=== PATIENT | female | born 2000 | race Two or more races ===

== ENCOUNTER 2024-09-04 16:05 | Emergency (ER) | payer MEDICARE, MEDICAID, SELFPAY ==
[2024-09-04 16:21] VITALS: BP 107/71; PULSE 130; RESP 20; TEMP 38.5; O2SAT 96
--- NOTE | 2024-09-04 16:32 | XR_ITS ---
Examination: AP chest single view Technique one AP sitting portable chest single view Exam date and time: September 04, 2024 1646 hrs. Comparison September 19, 2022 Indications: Fever chest pain today. Findings: Early left perihilar pneumonia Reduced inspiratory. The film is underpenetrated Impression: Left perihilar pneumonia
--- NOTE | 2024-09-04 16:34 | PD.EDRME ---
Rapid Medical Screening Exam E Arrival date/time: 09/04/24 16:05 This is a 24-year-old female that is brought in by mother with complaints of fever and not acting normal. Patient has a history of epilepsy, cerebral palsy, developmental delay. Mom says fever started 3 days ago. And she has not been able to sleep at night for the past 2 days. Patient only makes noises and not able to communicate. Mother communicates in her own way with child. Mother reports that child's not feeling well. Per mother patient has been whining and crying more. I have greeted and performed a focused initial assessment of this patient. Initial appropriate labs ordered at this time. A comprehensive ED assessment and evaluation of the patient and analysis of all test and completion of medical decision making process will be conducted by additional ED provider. Chief Complaint: General Adult/Misc Complain Time Seen by Provider: 09/04/24 16:09 Vital signs: Vital Signs Temperature 101.3 F H 09/04/24 16:21 Pulse Rate 130 H 09/04/24 16:21 Respiratory Rate 20 09/04/24 16:21 Blood Pressure 107/71 09/04/24 16:21 Pulse Oximetry (%) 96 09/04/24 16:21 Oxygen Delivery Method Room Air 09/04/24 16:21
[2024-09-04 16:56] VITALS: TEMP 38.5
[2024-09-04] MEDS: ACETAMINOPHEN SOL 325 MG/10 ML UDC 650 MG PO (16:56)
[2024-09-04 17:12] LABS: Lactate (Lactic Acid) 1.8 mMol/L (0.4-2.0)
[2024-09-04 17:14] LABS: Basophils % (Auto) 0 % (0-2.5); Eosinophils % (Auto) 0 % (0-10); Hematocrit 44.4 % (36.0-46.0); Hemoglobin 14.9 g/dL (12.0-16.0); Immature Granulocytes % (Auto) 0 % (0-0); Immature Granulocytes Auto 0.04 Thou/mm3 (0.00-0.00); Lymphocytes # (Auto) 0.5 Thou/mm3 (1.0-4.8); Lymphocytes % (Auto) 5 % (10-50); Mean Corpuscular HGB Conc 33.6 g/dl (31.0-37.0); Mean Corpuscular Hemoglobin 27.3 pg (25.0-35.0); Mean Corpuscular Volume 82 fL (80-100); Monocytes # (Auto) 0.3 Thou/mm3 (0.0-0.8); Monocytes % (Auto) 3 % (0-12); Neutrophils # (Auto) 9.4 Thou/mm3 (1.8-7.7); Neutrophils % (Auto) 91 % (37-80); Nucleated Red Blood Cell % 0 /100 WBC (0); Platelet Count 175 Thou/mm3 (140-440); RDW Standard Deviation 37.2 fL (36.4-46.3); Red Blood Count 5.45 Miln/mm3 (4.00-5.20); White Blood Count 10.3 Thou/mm3 (3.6-11.0)
[2024-09-04 17:37] LABS: Alanine Aminotransferase 21 U/L (10-49); Albumin, Serum 4.7 gm/dL (3.5-5.0); Anion Gap 8 (7-16); Aspartate Amino Transferase 24 U/L (0-34); BUN/Creatinine Ratio 16 Ratio (12-20); Bilirubin,Total 0.4 mg/dL (0.3-1.2); Blood Urea Nitrogen 16 mg/dL (9-23); Calcium 9.7 mg/dL (8.3-10.6); Carbon Dioxide 25.7 mMol/L (20.0-31.0); Chloride 105 mMol/L (98-107); Glucose 144 mg/dL (74-106); Osmolality,Calculated 281 (275-295); Potassium 4.6 mMol/L (3.4-5.1); Sodium 139 mMol/L (136-145); Total Protein 7.8 gm/dL (5.7-8.2); eGFR > 60 See Note
[2024-09-04 17:38] LABS: Albumin/Globulin Ratio 1.5 (1.2-2.2); Alkaline Phosphatase 112 U/L (46-116); Calcium (Corrected) 9.7 mg/dL (8.5-10.1); Globulin 3.1 gm/dL (2.3-3.5)
[2024-09-04 17:42] LABS: Procalcitonin 0.22 ng/ml (0.0-0.49)
[2024-09-04 21:10] LABS: Collection Type, Urine Clean Catch
[2024-09-04 21:17] LABS: Bilirubin,Urine 1+ (Negative); Blood,Urine Negative (Negative); Clarity,Urine Turbid (Clear/Hazy); Color,Urine Drk-Yellow (Lt Yel-Yel); Glucose, Urine Trace (Negative); Ketones,Urine Trace (Negative); Leukocyte Esterase,Urine Positive (Negative); Nitrite,Urine Negative (Negative); Protein,Urine 2+ (Neg - Trace); RBC,Urine 7 /hpf (0-3); Squamous Epithelial Cell,Urine 6 /hpf (0-5); WBC,Urine 4 /hpf (0-5)
[2024-09-04 21:27] VITALS: PULSE 130; RESP 20; TEMP 37.1; O2SAT 96
--- NOTE | 2024-09-04 21:34 | EDNOTE_ITS ---
ED General RME/HPI General Chief complaint: General Adult/Misc Complain Stated complaint: PAIN Time Seen by Provider: 09/04/24 16:09 Arrival date/time: 09/04/24 16:05 CC: Fever and not acting normal and HPI ongoing for the past several days, the patient has epilepsy cerebral palsy is nonverbal with significant developmentally delayed. Mother states there is no other issues including diarrhea crying with urinating or constipation. RME / HPI RME / HPI narrative: 09/04/24 16:05 This is a 24-year-old female that is brought in by mother with complaints of fever and not acting normal. Patient has a history of epilepsy, cerebral palsy, developmental delay. Mom says fever started 3 days ago. And she has not been able to sleep at night for the past 2 days. Patient only makes noises and not able to communicate. Mother communicates in her own way with child. Mother reports that child's not feeling well. Per mother patient has been whining and crying more. I have greeted and performed a focused initial assessment of this patient. Initial appropriate labs ordered at this time. A comprehensive ED assessment and evaluation of the patient and analysis of all test and completion of medical decision making process will be conducted by additional ED provider. Related Data Home Medications ?Medication ?Instructions ?Recorded ?Confirmed oxcarbazepine 300 mg/5 mL (60 16 ml PO BID #2 tsp 12/12/2603/27/19 mg/mL) oral suspension (Trileptal) clobazam 2.5 mg/mL oral suspension 4 ml PO BID ##0 06/0103/27/19 (Onfi) Previous Rx's ?Medication ?Instructions ?Recorded docusate sodium 50 mg capsule 50 mg PO BID #20 caps (Colace Clear) guaifenesin 100 mg/5 mL oral liquid 200 mg (10 mL) PO Q4H PRN cough 07/23/21 #1,000 mL lactulose 10 gram/15 mL (15 mL) 20 g (30 mL) PO BID LA N 09/19/22 oral solution constipation #600 mL doxycycline hyclate 100 mg capsule 100 mg PO BID #14 c aps 09/04/24 Allergies Allergy/AdvReac Type Severity Reaction Status Date / Time Penicillins Allergy Intermediate RASH AND Verified 09/04/24 16:06 BLEEDING Review of Systems Review of Systems ROS Unobtainable: unobtainable due to mental status Past Medical History Past Medical History NEUROLOGIC: Positive Neurological Disorders, Seizures and Cerebral Palsy CARDIAC: Negative Congestive Heart Failure RESPIRATORY: Negative Chronic Obstructive Pulmonary Disease (COPD) GENITOURINARY: Negative Renal Disease ENDOCRINE: Negative Diabetes Mellitus Type 1 or Diabetes Mellitus Type 2 PSYCHO/SOCIAL: Positive Psychiatric Problems and Behavior Problems Family History FAMILY HISTORY: Positive Family Neurologic Problems Social History SMOKING STATUS: Never smoker SECOND HAND EXPOSURE: No SUBSTANCE USE: does not use ED Exam Narrative Physical exam: [General: Appears not in any acute distress Head normocephalic HEENT: Baseline disconjugate gaze pupils are PERRLA EOMs are intact. All other subsystems of HEENT are within acceptable limits Neck is supple nontender Chest equal chest rise nontender to palpation Respiratory: Clear to auscultation no wheezes crackles or rubs CV: Rate rhythm is regular no murmurs rubs or clicks Abdomen is distended secondary to body habitus soft nontender positive bowel sounds all 4 quadrants Back: No CVA tenderness no spinous process tenderness from cervical spine thoracic and lumbar spine Skin: Intact no petechiae rash induration ulceration or crepitus Extremities: Moving all extremity against resistance cap refill less than 2 seconds neurosensory intact Neuro: Awake, oriented to self. Course Quality Measures none Orders Category Date Time Status Bedside COVID-19 Antigen Test NOW Care 09/04/24 16:32 Completed Bedside Influenza A&B Antigen Test NOW Care 09/04/24 16:33 Completed Mcdaniel [Urinary Catheter] QS Care 09/04/24 16:36 Active XR chest 2V Stat Exams 09/04/24 16:32 Completed CBC Stat Lab 09/04/24 17:04 Completed Comprehensive Metabolic Panel Stat Lab 09/04/24 17:04 Completed Lactate (Lactic Acid) Stat Lab 09/04/24 17:04 Completed Procalcitonin Stat Lab 09/04/24 17:04 Completed UA [Urinalysis] Stat Lab 09/04/24 21:02 Completed Acetaminophen Violetta [Tylenol Violetta] Med 09/04/24 16:32 Discontinued 650 mg PO X1 ONE cefTRIAXone [Rocephin] 1,000 mg Med 09/04/24 21:40 Discontinued Lidocaine 1% 20 ml [Xylocaine 1% 20 ML] 2.1 ml IM X1 Vital Signs Vital signs: Vital Signs Temperature 101.3 F H 09/04/24 16:21 Pulse Rate 130 H 09/04/24 16:21 Respiratory Rate 20 09/04/24 16:21 Blood Pressure 107/71 09/04/24 16:21 Pulse Oximetry (%) 96 09/04/24 16:21 Oxygen Delivery Method Room Air 09/04/24 16:21 [facility] Patient data External records reviewed:: [facility] previous records Clinical information provided by:: patient and parent Social determinants that could affect healthcare access:: none Patient has the following chronic illnesses:: Cerebral palsy developmentally delayed How is presenting disease/condition affected by chronic disease/condition?: u neffected by Evaluation data The following diagnostics were reviewed and interpreted by me:: lab results and radiology exam(s) Lab and/or radiology exams considered but not ordered:: CBC shows no acute leukocytosis anemia thrombocytopenia CMP shows no acute electrolyte imbalances renal impairment transaminitis or T. bili elevation Urine is negative for UTI Chest x-ray shows a possible left pneumonia. Interpretation Summary: Pneumonia Medications Medications considered but not ordered:: None Medication administrations:: Medication Administration History Discontinued Medications Acetaminophen (Acetaminophen Violetta 325 Mg/10 Ml Udc) 650 mg PO X1 ONE Stop: 09/04/24 16:33 Last Admin: 09/04/24 16:56 Dose: 650 mg Documented By: KF Ceftriaxone Sodium 1,000 mg/ (Lidocaine HCl 2.1 ml) 0 mg IM X1 ONE Stop: 09/04/24 21:41 Last Admin: 09/04/24 21:47 Dose: 1,000 mg Documented By: CVL None Consultations Consultation(s) initiated? (list below): No Diagnosis Differential Diagnosis ED Complaint MDM: Pneumonia UTI sepsis Most likely diagnosis given after review of the tests above:: Pneumonia Admission Indicated Admission indicated?: not indicated Explain why admission is indicated or not indicated:: Stable for outpatient follow up Admission Request Was there a request for admission?: No Disposition Plan Disposition Plan: Discharge Discharge Attestation Discharge Attestation: The patient and all family members were given an opportunity to ask questions and understood the discharge instructions. Discharge instructions specifically effects, indications for sooner follow up or return to the emergency department, and the expected course of current diagnosis. Patient condition: Stable Medical Decision Making Differential Diagnosis Differential Diagnosis: Pneumonia UTI sepsis Lab Data 09/04/24 17:04 09/04/24 17:04 Labs: Lab Results 09/04/24 09/04/24 09/04/24 Range/Units 16:50 17:04 21:02 WBC 10.3 (3.6-11.0) Thou/mm3 RBC 5.45 H (4.00-5.20) Miln/mm3 Hgb 14.9 (12.0-16.0) g/dL Hct 44.4 (36.0-46.0) % MCV 82 (80-100) fL MCH 27.3 (25.0-35.0) pg MCHC 33.6 (31.0-37.0) g/dl RDW Std Deviation 37.2 (36.4-46.3) fL Plt Count 175 (140-440) Thou/mm3 Neut % (Auto) 91 H (37-80) % Lymph % (Auto) 5 L (10-50) % [place] % (Auto) 3 (0-12) % Eos % (Auto) 0 (0-10) % Baso % (Auto) 0 (0-2.5) % Neut # (Auto) 9.4 H (1.8-7.7) Thou/mm3 Lymph # (Auto) 0.5 L (1.0-4.8) Thou/mm3 [place] # (Auto) 0.3 (0.0-0.8) Thou/mm3 Eos # (Auto) 0.0 (0.0-0.5) Thou/mm3 Baso # (Auto) 0.0 (0.0-0.2) Thou/mm3 Immature Gran # (Auto) 0.04 H (0.00-0.00) Thou/mm3 Absolute Nucleated RBC 0.00 (0.00-0.00) Thou/mm3 Immature Gran % 0 (0-0) % Nucleated RBC % 0 (0) /100 WBC Sodium 139 (136-145) mMol/L Potassium 4.6 (3.4-5.1) mMol/L Chloride 105 (98-107) mMol/L Carbon Dioxide 25.7 (20.0-31.0) mMol/L Anion Gap 8 (7-16) BUN 16 (9-23) mg/dL Creatinine 1.0 (0.6-1.3) mg/dL Estim Creat Clear Calc Not Performed. eGFR > 60 (60 - ) See Note BUN/Creatinine Ratio 16 (12-20) Ratio Glucose 144 H (74-106) mg/dL Calculated Osmolality 281 (275-295) Lactic Acid 1.8 (0.4-2.0) mMol/L Calcium 9.7 (8.3-10.6) mg/dL Corrected Calcium 9.7 (8.5-10.1) mg/dL Total Bilirubin 0.4 (0.3-1.2) mg/dL AST 24 (0-34) U/L ALT 21 (10-49) U/L Alkaline Phosphatase 112 (46-116) U/L Total Protein 7.8 (5.7-8.2) gm/dL Albumin 4.7 (3.5-5.0) gm/dL Globulin 3.1 (2.3-3.5) gm/dL Albumin/Globulin Ratio 1.5 (1.2-2.2) Procalcitonin 0.22 (0.0-0.49) ng/ml Ur Collection Type Cancelled Clean Catch Urine Color Cancelled Drk-Yellow A Urine Clarity Cancelled Turbid A Urine pH Cancelled 6.0 Ur Specific [place] Cancelled 1.030 Urine Protein Cancelled 2+ A Urine Glucose (UA) Cancelled Trace Urine Ketones Cancelled Trace Urine Blood Cancelled Negative Urine Nitrite Cancelled Negative Urine Bilirubin Cancelled 1+ A Urine Urobilinogen (Auto) Cancelled 4.0 Ur Leukocyte Esterase Cancelled Positive Urine RBC Cancelled 7 H Urine WBC Cancelled 4 Ur Squamous Epith Cells Cancelled 6 H Ur Transition Epith Cell Cancelled Ur Renal Epithelial Cell Cancelled Calcium Carbonate Cryst Cancelled Calcium Phosphate Cryst Cancelled Calcium Oxalate Crystal Cancelled Leucine Crystals Cancelled Cystine Crystals Cancelled Uric Acid Crystals Cancelled Triple Phos Crystals Cancelled Tyrosine Crystals Cancelled Amorphous Crystals Cancelled Urine Bacteria Cancelled None Cellular Casts Cancelled Epithelial Casts Cancelled Fatty Casts Cancelled Hyaline Casts Cancelled Granular Casts Cancelled Waxy Casts Cancelled Broad Casts Cancelled RBC Casts Cancelled Urine Mucus Cancelled Urine Trichomonas Cancelled Ur Yeast w Hyphae Cancelled Urine Yeast (Budding) Cancelled Urine Sperm Cancelled Ur Oval Fat Bodies Cancelled Ur Culture Indicated? Cancelled Discharge Plan Plan Patient Disposition: HOME (Self Care) Patient condition on transfer: Stable Prescriptions/Referrals Prescriptions/Med Rec: New doxycycline hyclate 100 mg capsule 100 mg PO BID Qty: 14 0RF No Action oxcarbazepine [Trileptal] 300 MG/5 ML suspension 16 ml PO BID Qty: 2 clobazam [Onfi] 2.5 MG/1 ML suspension 4 ml PO BID Qty: 0 Colace Clear 50 MG capsule 50 mg PO BID Qty: 20 0RF guaifenesin 100 mg/5 mL liquid 200 mg PO Q4H PRN (Reason: cough) Qty: 1000 0RF lactulose 10 gram/15 mL (15 mL) solution 20 g PO BID PRN (Reason: constipation) Qty: 600 0RF Problem List Clinical Impression: Pneumonia Patient/Caregiver Discharge Instructions Education Materials: ED Pneumonia (Adult) Print Language: Trinidadian Stand Alone Forms: Candace Award Info., Work/School Release, Patient Portal Info Letter PA/FACSIMILE MACHINE OPERATOR Supervising Physician PA/FACSIMILE MACHINE OPERATOR Supervising Physician: Schuyler Hawk ENP
[2024-09-04] MEDS: cefTRIAXone 1,000 MG, LIDOCAINE 1% 20 ML 2.1 ML IM (21:47)
== END 2024-09-04 22:08 | disposition home or self-care (01) ==
LOC: SERX 22:50
PROVIDERS: Nurse Practitioner Family; Emergency Provider Emergency Medicine
DX: J18.9 Pneumonia, unspecified organism (principal); G40.909 Epilepsy, unspecified, not intractable, without status epilepticus; G80.9 Cerebral palsy, unspecified
CPT/HCPCS: 36415; 71046; 80053; 81001; 83605; 84145; 85025; 87400; 87811; 96372; 99283; J0696; J3490; A9270